=== PATIENT | male | born 1955 | race Caucasian/White ===

== ENCOUNTER → 2020-08-18 13:09 | Outpatient (BNVA) | payer OTHER, SELFPAY | PROVIDERS: PCP Internal Medicine; Visit Provider Urology ==

== ENCOUNTER → 2021-10-06 11:19 | Outpatient (BNVA) | payer OTHER, SELFPAY | PROVIDERS: PCP Internal Medicine; Visit Provider Urology | DX: N40.1 Benign prostatic hyperplasia with lower urinary tract symptoms (principal); R35.1 Nocturia | CPT/HCPCS: 51798 ==

== ENCOUNTER → 2022-04-15 10:23 | Outpatient (BNVA) | payer OTHER, SELFPAY | PROVIDERS: PCP Internal Medicine; Visit Provider Urology | DX: N40.1 Benign prostatic hyperplasia with lower urinary tract symptoms (principal); R35.1 Nocturia | CPT/HCPCS: 51798 ==

== ENCOUNTER 2023-04-19 13:11 | Outpatient (AMB) | payer OTHER, SELFPAY ==
--- NOTE | 2023-04-19 13:13 | A.OFFVIS_ITS ---
Intake Intake Visit Reasons: 1Y PSA(set) Intake Note: Patient is present for PVR/PSA Urology Med: Tamsulosin Antibiotic Allergy: None Blood Thinner: Eliquis [facility] PVR: 0ml Allergies No Known Allergies Allergy (Verified 04/19/23 13:14) Medication List - Last Reconciled 04/19/23 by Ubaldo Bay MD apixaban (Eliquis) 5 mg PO BID diltiazem HCl 120 mg PO DAILY flecainide 50 mg PO BID flu vac [id number] 36mos up(PF) mL IM tamsulosin 0.4 mg PO DAILY tamsulosin 0.4 mg PO BEDTIME 90 days HPI HPI Comments History of Present Illness Details Woodrow CASTANON is a very pleasant male. They are a patient of Dr. Manning. He seen for the following urologic conditions - lower urinary tract symptoms PSA stabilized in dropped from 3.2-2.7 Six month follow-up repeat Effective urination on tamsulosin ADA 2+ Works in [employer] for [employer] Brother history of prostate cancer aged 67 Lower Urinary Tract Symptoms: Discussed current urinary parameters Minimal nocturia Effective emptying Effective stream Is happy staying on the tamsulosin 0.4 mg with fluid restriction Can review in 12 months Current visit is for further evaluation of, lower urinary tract symptoms, predominate obstructive symptoms. Current treatment includes alpha rusty with fluid limiting Prostate Symptom Score 6/19 , Moderate (9-19), Bother 3. Symptoms include 6/ , urgency, frequency, and are progressing. PSA 01/16 2.6, 08/20 2.5, 09/21 3.4, 03/21 3.2, 03/22 2.7 Prostate volume 30-50gm Cystoscopy - no prominent medium lobe Testing at next visit will include bladder scan [facility] Medical History History of atrial fibrillation Benign prostatic hyperplasia with lower urinary tract symptoms Nocturia Weak urinary stream Overactive bladder Dysuria Surgical History History of surgery Review of Systems Const Denies chills and Denies fever(s) Card Reports no additional complaints and Denies syncope Resp Denies cough GI Denies abdominal pain and Denies heartburn Reports as per HPI and Denies change in libido Neuro Denies syncope Psych Denies change in libido Endo Denies change in libido Physical Exam Const General: cooperative, healthy appearing, comfortable and no acute distress Orientation/consciousness: patient oriented x3 HEENT Face and sinus: Yes normal facial exam Mouth: moist mucous membranes Neck Neck: Yes normal visual inspection, Yes full ROM and Yes trachea midline Chest Chest palpation & inspection: normal inspection of the chest Resp Effort & Inspection: normal respiratory effort, able to speak in complete sentences and no respiratory distress GI Inspection: Yes normal to inspection Back/Spine/Pelvis Cervical Spine: normal cervical lordosis Thoracic/Lumbar Spine: thoracic and lumbar spine normal to inspection Skin General skin exam: no rashes or lesions noted Neuro General: patient oriented x3, gait normal, tone normal and moves all extremities Extrem General: Yes normal to inspection and Yes capillary refill normal Office Procedures Post Void Residual Post Residual Void Post Void Residual (PVR): 0 [id number]-[id number] Void Residual by ultrasound Results AMB Urinalysis, Automated UA Leukoctes 0 Jose/uL Last Edit by Prabha Bateman [facility] on 04/19/23 13:25 UA Nitrite Negative Last Edit by Prabha Bateman [facility] on 04/19/23 13:25 UA Urobilinogen 1 mg/dL Last Edit by Prabha Bateman [facility] on 04/19/23 13:25 UA Protein 15 mg/dL Last Edit by Prabha Bateman [facility] on 04/19/23 13:25 UA pH 5.5 Last Edit by Prabha Bateman [facility] on 04/19/23 13:25 UA Blood 0 Charles/uL Last Edit by Prabha Bateman [facility] on 04/19/23 13:25 UA Specific [place] 1.030 Last Edit by Prabha Bateman [facility] on 04/19/23 13: 25 UA Ketone Negative Last Edit by Prabha Bateman [facility] on 04/19/23 13:25 UA Bilirubin 0 mg/dL Last Edit by Prabha Bateman [facility] on 04/19/23 13:25 UA Glucose 0 mg/dL Last Edit by Prabha Bateman [facility] on 04/19/23 13:25 Results Reviewed Results Reviewed: Laboratory Last Values Urine pH (Auto) 5.5 04/19/23 13:15 Specific [place] (Auto) 1.030 04/19/23 13:15 Urine Protein (Auto) 15 mg/dL 04/19/23 13:15 Glucose (UA)(Auto) 0 mg/dL 04/19/23 13:15 Urine Ketones (Auto) Negative 04/19/23 13:15 Urine Blood (Auto) 0 Charles/uL 04/19/23 13:15 Urine Nitrite (Auto) Negative 04/19/23 13:15 Urine Bilirubin (Auto) 0 mg/dL 04/19/23 13:15 Urine Urobilinogen (Auto) 1 mg/dL 04/19/23 13:15 Leukocyte Esterase (Auto) 0 Jose/uL 04/19/23 13:15 Assessment & Plan Assessment & Plan (1) Elevated PSA: Code(s): R97.20 - Elevated prostate specific antigen [PSA] (2) Nocturia: Code(s): R35.1 - Nocturia (3) BPH (benign prostatic hyperplasia): Code(s): N40.0 - Benign prostatic hyperplasia without lower urinary tract symptoms Plan Six month follow-up Orders: Orders Prostate Specific Antigen 6 Months R97.20 - Elevated prostate specific antigen [PSA] AMB Urinalysis Automated Today Z13.9 - Encounter for screening, unspecified AMB Post Void Residual by ultrasound Today N40.0 - Benign prostatic hyperplasia without lower urinary tract symptoms Patient Instructions: Imaging studies, laboratory and physical exam results were discussed and reviewed in detail. No major barriers to patient understanding were identified. An opportunity to ask questions regarding the treatment plan was provided. All questions were answered. The patient expressed understanding and agreement with the above treatment plan. The patient is aware they should contact our office by phone for worsening of their current condition or the appearance of new urologic symptoms. Compliance is encouraged with any medications and followup testing that is ordered. It is a privilege to participate in the urologic care of your patient. If you have any questions or concerns regarding treatment for the above conditions, or other urologic issues, please do not hesitate to contact me. The office telephone contact is [phone]. This note is constructed using voice recognition software. While every effort has been made to ensure accuracy traffic lieutenant errors may have been included. Yours sincerely, Dr Ubaldo Bay MD, [facility] - Urology Providers of Expert, Compassionate Care for the Genitourinary System Coding Level of Care Code Est Pt Level 3 (23979) Diagnoses Elevated PSA R97.20 Nocturia R35.1 BPH (benign prostatic hyperplasia) N40.0 CPT Codes Post Residual Void - PVR CPT Code: 12548-[id number] Void Residual by ultrasound ([id number])
== END 2023-04-19 13:46 | disposition home or self-care (01) ==
PROVIDERS: PCP Internal Medicine; Visit Provider Urology
DX: R97.20 Elevated prostate specific antigen [PSA] (principal); R35.1 Nocturia; N40.0 Benign prostatic hyperplasia without lower urinary tract symptoms; Z13.9 Encounter for screening, unspecified
CPT/HCPCS: 99213

== ENCOUNTER → 2023-04-19 13:11 | Outpatient (BNVA) | payer OTHER, SELFPAY | PROVIDERS: Visit Provider Urology | DX: R97.20 Elevated prostate specific antigen [PSA] (principal); N40.1 Benign prostatic hyperplasia with lower urinary tract symptoms; R35.1 Nocturia | CPT/HCPCS: 51798; 81003 ==

== ENCOUNTER 2023-10-12 07:54 | Outpatient (REF) | payer MEDICARE, OTHER, SELFPAY ==
[2023-10-12 09:37] LABS: Prostate Specific Antigen 2.58 ng/mL (<0.05-4.0)
== END 2023-10-12 07:55 | disposition home or self-care (01) ==
LOC: HO.LAB 07:54
PROVIDERS: Visit Provider Urology
DX: R97.20 Elevated prostate specific antigen [PSA] (principal); Z12.5 Encounter for screening for malignant neoplasm of prostate
CPT/HCPCS: 36415; 84153

== ENCOUNTER 2023-10-19 08:03 | Outpatient (AMB) | payer MEDICARE, OTHER, SELFPAY ==
--- NOTE | 2023-10-19 08:03 | A.OFFVIS_ITS ---
Intake Intake Visit Reasons: 6M PSA(set)Confirmed Intake Note: Patient presents today for a telehealth follow-up on PSA Meds- Tamsulosin Allergies to Antibiotic- No Known Allergies Blood Thinner- Eliquis Poker Supervisor Required: No Allergies No Known Allergies Allergy (Verified 10/19/23 08:05) Medication List - Last Reconciled 10/19/23 by Ubaldo Bay MD apixaban (Eliquis) 5 mg PO BID diltiazem HCl 120 mg PO DAILY flecainide 50 mg PO BID flu vac [id number] 36mos up(PF) mL IM tamsulosin 0.4 mg PO BEDTIME 90 days HPI HPI Comments History of Present Illness Details Woodrow CASTANON is a very pleasant male. They are a patient of Dr. Manning. He seen for the following urologic conditions - lower urinary tract symptoms Telemedicine Evaluation 15 min Consultation [employer] [facility] [employer] attempted PSA stabilized in dropped from 3.2 - 2.7 - 2.6 Six month follow-up repeat Waking up 2-3 times at night Will trial doubling up on tamsulosin and call if successful ADA 2+ Works in [employer] Brother history of prostate cancer aged 67 Lower Urinary Tract Symptoms: Discussed current urinary parameters Minimal nocturia Effective emptying Effective stream Is happy staying on the tamsulosin 0.4 mg with fluid restriction Can review in 6 months Current visit is for further evaluation of, lower urinary tract symptoms, predominate obstructive symptoms. Current treatment includes alpha rusty with fluid limiting Prostate Symptom Score 01/16 , Moderate (9-19), Bother 3. Symptoms include 01/16 , urgency, frequency, and are progressing. PSA 01/16 2.6, 08/20 2.5, 09/21 3.4, 03/21 3.2, 03/22 2.7 Prostate volume 30-50gm Cystoscopy - no prominent medium lobe Testing at next visit will include bladder scan [facility] Medical History History of atrial fibrillation Benign prostatic hyperplasia with lower urinary tract symptoms Nocturia Weak urinary stream Overactive bladder Dysuria Surgical History History of surgery Assessment & Plan Assessment & Plan (1) BPH (benign prostatic hyperplasia): Code(s): N40.0 - Benign prostatic hyperplasia without lower urinary tract symptoms (2) Elevated PSA: Code(s): R97.20 - Elevated prostate specific antigen [PSA] Plan Six-month follow-up PSA Orders: Orders Prostate Specific Antigen 6 Months R97.20 - Elevated prostate specific antigen [PSA] Medications: Refilled tamsulosin 0.4 mg PO BEDTIME 90 days 90 caps 3RF R97.20 - Elevated prostate specific antigen [PSA] Patient Instructions: Imaging studies, laboratory and physical exam results were discussed and rev iewed in detail. No major barriers to patient understanding were identified. An opportunity to ask questions regarding the treatment plan was provided. All questions were answered. The patient expressed understanding and agreement with the above treatment plan. The patient is aware they should contact our office by phone for worsening of their current condition or the appearance of new urologic symptoms. Compliance is encouraged with any medications and followup testing that is ordered. It is a privilege to participate in the urologic care of your patient. If you have any questions or concerns regarding treatment for the above conditions, or other urologic issues, please do not hesitate to contact me. The office telephone contact is [phone]. This note is constructed using voice recognition software. While every effort has been made to ensure accuracy filler sifter helper errors may have been included. Yours sincerely, Dr Ubaldo Bay MD, [facility] - Urology Providers of Expert, Compassionate Care for the Genitourinary System Telehealth Telehealth Location of provider rendering services: practice address Location of patient: address on file Patient Identification confirmed using: Name, : Yes Telehealth method: video Patient verbally consented to treatment: Yes Patient verbally consented to billing insurance company: Yes Patient informed of any privacy concerns related to visit: Yes Coding Level of Care Code Tele Est Pt Level 4 (45980) Diagnoses BPH (benign prostatic hyperplasia) N40.0 Elevated PSA R97.20
== END 2023-10-19 09:24 | disposition home or self-care (01) ==
LOC: HO.HUSH 08:03
PROVIDERS: PCP Internal Medicine; Visit Provider Urology
DX: N40.0 Benign prostatic hyperplasia without lower urinary tract symptoms (principal); R97.20 Elevated prostate specific antigen [PSA]; R35.1 Nocturia
CPT/HCPCS: 99214

== ENCOUNTER → 2023-10-19 08:03 | Outpatient (BNVA) | payer MEDICARE, OTHER, SELFPAY | PROVIDERS: PCP Internal Medicine; Visit Provider Urology ==

== ENCOUNTER 2024-04-16 08:54 | Outpatient (REF) | payer MEDICARE, OTHER, SELFPAY ==
[2024-04-16 09:09] LABS: MANUAL DIFF FLAG NO
[2024-04-16 09:51] LABS: Basophils Absolute Auto 0.1 X10*3/uL (0.0-0.2); Basophils Percent Auto 1.1 % (0-2); Eosinophils Absolute Auto 0.1 X10*3/uL (0.0-0.4); Eosinophils Percent Auto 1.7 % (0-4); Hematocrit 42.1 % (42.0-52.0); Hemoglobin 14.8 g/dl (14.0-18.0); Imm Gran Abs Auto 0.01 X10*3/uL (0.00-0.03); Imm Gran Pct Auto 0.2 % (0.0-0.4); Lymphocytes Absolute Auto 1.7 X10*3/uL (1.2-4.9); Lymphocytes Percent Auto 36.5 % (20-40); Mean Corpuscular HGB Conc 35.2 g/dl (31.0-36.0); Mean Corpuscular Volume 88.3 fL (80.0-98.0); Mean Platelet Volume 11.3 fL (9.4-12.4); Monocytes Absolute Auto 0.4 X10*3/uL (0.1-1.2); Monocytes Percent Auto 9.3 % (2-11); Neutrophils Absolute Auto 2.4 x10*3/uL (2.0-8.3); Neutrophils Percent Auto 51.2 % (45-73); Platelet Count 212 X10*3/uL (160-400); Red Blood Count 4.77 X10*6/uL (4.60-5.80); White Blood Count 4.6 X10*3/uL (4.8-10.8)
[2024-04-16 10:28] LABS: Anion Gap 10 (12-20); Blood Urea Nitrogen 12 mg/dL (9-16); Calcium 9.4 mg/dL (8.4-10.2); Carbon Dioxide 29 mmol/L (22-29); Chloride 107 mmol/L (96-108); Estimated Glomerular Filt Rate > 60; Glucose Random 88 mg/dL (60-115); Potassium 4.1 mmol/L (3.3-5.1); Sodium 142 mmol/L (135-145)
[2024-04-16 10:47] LABS: Prostate Specific Antigen 3.17 ng/mL (<0.05-4.0)
== END 2024-04-16 08:55 | disposition home or self-care (01) ==
LOC: HO.LAB 08:54
PROVIDERS: Absent Provider Physician Assistant; PCP Internal Medicine; Visit Provider Urology
DX: R97.20 Elevated prostate specific antigen [PSA] (principal); R00.2 Palpitations; I48.3 Typical atrial flutter; I48.0 Paroxysmal atrial fibrillation; R06.02 Shortness of breath; R53.83 Other fatigue; Z12.5 Encounter for screening for malignant neoplasm of prostate
CPT/HCPCS: 36415; 80048; 84153; 85025

== ENCOUNTER 2024-04-23 10:26 | Outpatient (AMB) | payer MEDICARE, OTHER, SELFPAY ==
--- NOTE | 2024-04-23 10:42 | A.OFFVIS_ITS ---
Intake Visit Reasons: 6M Follow Up-PSA(set) Intake Note: Patient presents today for 6m follow-up/ PSA Meds- Tamsulosin Allergies to Antibiotic- No Known Allergies Blood Thinner- Eliquis Driver'S License Reviewing Officer Required: No Allergies No Known Allergies Allergy (Verified 04/23/24 10:43) Medication List - Last Reconciled 04/23/24 by Ubaldo Bay MD apixaban (Eliquis) 5 mg PO BID diltiazem HCl CD 120 mg PO DAILY flecainide 50 mg PO BID flu vac [id number] 36mos up(PF) mL IM tadalafil 2.5 mg PO DAILY 90 days tamsulosin 0.8 mg (2 x 0.4 mg) PO BEDTIME 90 days HPI Comments Details: Woodrow CASTANON is a very pleasant male. They are a patient of Dr. Manning. 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 Current treatment includes alpha rusty with fluid limiting Prostate Symptom Score 01/16 , Moderate (9-19), Bother 3. Symptoms include 01/16 , urgency, frequency, and are progressing. PSA 01/16 2.6, 08/20 2.5, 09/21 3.4, 03/21 3.2, 03/22 2.7, 04/23 3.2 Prostate volume 30-50gm Cystoscopy - no prominent medium lobe Testing at next visit will include bladder scan PFSH Medical History History of atrial fibrillation Benign prostatic hyperplasia with lower urinary tract symptoms Nocturia Weak urinary stream Overactive bladder Dysuria Surgical History History of surgery Review of Systems Const Denies chills and Denies fever(s) Card Reports no additional complaints and Denies syncope Resp Denies cough GI Denies abdominal pain and Denies heartburn Reports as per HPI and Denies change in libido Neuro Denies syncope Psych Denies change in libido Endo Denies change in libido Physical Exam Const General: cooperative, healthy appearing, comfortable and no acute distress Orientation/consciousness: patient oriented x3 HEENT Face and sinus: Yes normal facial exam Mouth: moist mucous membranes Neck Neck: Yes normal visual inspection, Yes full ROM and Yes trachea midline Chest Chest palpation & inspection: normal inspection of the chest Resp Effort & Inspection: normal respiratory effort, able to speak in complete sentences and no respiratory distress GI Inspection: Yes normal to inspection Back/Spine/Pelvis Cervical Spine: normal cervical lordosis Thoracic/Lumbar Spine: thoracic and lumbar spine normal to inspection Skin General skin exam: no rashes or lesions noted Neuro General: patient oriented x3, gait normal, tone normal and moves all extremities Extrem General: Yes normal to inspection and Yes capillary refill normal Results AMB Urinalysis, Automated UA Leukoctes 0 Jose/uL Last Edit by JOHN Tillman on 04/23/24 10:56 UA Nitrite Negative Last Edit by JOHN Tillman on 04/23/24 10:56 UA Urobilinogen 0.2 mg/dL Last Edit by JOHN Tillman on 04/23/24 10:5 6 UA Protein 0 mg/dL Last Edit by JOHN Tillman on 04/23/24 10:56 UA pH 6.0 Last Edit by JOHN Tillman on 04/23/24 10:56 UA Blood 0 Charles/uL Last Edit by JOHN Tillman on 04/23/24 10:56 UA Specific [place] 1.030 Last Edit by JOHN Tillman on 04/23/24 10: 56 UA Ketone Negative Last Edit by JOHN Tillman on 04/23/24 10:56 UA Bilirubin 0 mg/dL Last Edit by JOHN Tillman on 04/23/24 10:56 UA Glucose 0 mg/dL Last Edit by JOHN Tillman on 04/23/24 10:56 Assessment & Plan Assessment & Plan (1) Bladder instability: Code(s): N32.89 - Other specified disorders of bladder Category: Medical (2) Nocturia: Code(s): R35.1 - Nocturia Category: Medical (3) BPH (benign prostatic hyperplasia): Code(s): N40.0 - Benign prostatic hyperplasia without lower urinary tract symptoms Category: Medical Plan Trial tadalafil Orders: Orders AMB Urinalysis Automated Today Z13.9 - Encounter for screening, unspecified Medications: New tadalafil 2.5 mg PO DAILY 90 days 90 tabs 0RF bladder instability N32.89 - Other specified disorders of bladder Patient Instructions: Imaging studies, laboratory and physical exam results were discussed and reviewed in detail. No major barriers to patient understanding were identified. An opportunity to ask questions regarding the treatment plan was provided. All questions were answered. The patient expressed understanding and agreement with the above treatment plan. The patient is aware they should contact our office by phone for worsening of their current condition or the appearance of new urologic symptoms. Compliance is encouraged with any medications and followup testing that is ordered. It is a privilege to participate in the urologic care of your patient. If you have any questions or concerns regarding treatment for the above conditions, or other urologic issues, please do not hesitate to contact me. The office telephone contact is [phone]. This note is constructed using voice recognition software. While every effort has been made to ensure accuracy blender helper errors may have been included. Yours sincerely, Dr Ubaldo Bay MD, [facility] - Urology Providers of Expert, Compassionate Care for the Genitourinary System Coding Level of Care Code Est Pt Level 4 (55841) Diagnoses Bladder instability N32.89 Nocturia R35.1 BPH (benign prostatic hyperplasia) N40.0
== END 2024-04-23 11:21 | disposition home or self-care (01) ==
PROVIDERS: PCP Internal Medicine; Visit Provider Urology
DX: N32.89 Other specified disorders of bladder (principal); R35.1 Nocturia; N40.0 Benign prostatic hyperplasia without lower urinary tract symptoms; Z13.9 Encounter for screening, unspecified
CPT/HCPCS: 99214

== ENCOUNTER → 2024-04-23 10:26 | Outpatient (BNVA) | payer MEDICARE, OTHER, SELFPAY | PROVIDERS: PCP Internal Medicine; Visit Provider Urology | DX: N40.0 Benign prostatic hyperplasia without lower urinary tract symptoms (principal); N32.89 Other specified disorders of bladder; R35.1 Nocturia | CPT/HCPCS: 81003; 99212 ==

== ENCOUNTER 2024-07-19 11:07 | Outpatient (AMB) | payer MEDICARE, OTHER, SELFPAY ==
--- NOTE | 2024-07-19 11:08 | MHC.OFFVIS ---
Intake Visit Reasons: 3m follow up Intake Note: Patient is present for 3M F/U Urology Medication:TAMSULOSIN,TADALAFIL Antibiotic Allergy:NONE Blood Thinner:APIXABAN Rest Room Maid Required: No Allergies No Known Allergies Allergy (Verified 07/19/24 11:08) HPI Comments Details: Woodrow CASTANON is a very pleasant male. They are a patient of Dr. Mnaning. He seen for the following urologic conditions - lower urinary tract symptoms Telemedicine Evaluation 15 min Consultation [facility] Video Follow-up trial of daily tadalafil for urinary urge Has noted that he feels more rested at night Waking 2 times rather than 3 times Does feel more confidence in has erectile performance Would like to remain on medications PSA stabilized in dropped from 3.2 - 2.7 - 2.6 - 04/23 3.2 Was waking up to 3 times at night Retired from [employer] - 09/19/2023 Brother history of prostate cancer aged 67 Lower Urinary Tract Symptoms: Discussed current urinary parameters Minimal nocturia Effective emptying Effective stream Is happy staying on the tamsulosin 0.4 mg with fluid restriction Can review in 6 months Current visit is for further evaluation of, lower urinary tract symptoms, predominate obstructive symptoms. Current treatment includes alpha rusty with fluid limiting Prostate Symptom Score 6/ , Moderate (9-19), Bother 3. Symptoms include 01/16 , urgency, frequency, and are progressing. PSA 01/16 2.6, 08/20 2.5, 09/21 3.4, 03/21 3.2, 03/22 2.7, 04/23 3.2 Prostate volume 30-50gm Cystoscopy - no prominent medium lobe Testing at next visit will include bladder scan [facility] Medical History History of atrial fibrillation Benign prostatic hyperplasia with lower urinary tract symptoms Nocturia Weak urinary stream Overactive bladder Dysuria Surgical History History of surgery Review of Systems Const All systems reviewed & are unremarkable except as noted in HPI and below Reports no additional complaints Resp Reports no additional complaints GI Reports no additional complaints Reports as per HPI Musc Reports no additional complaints Physical Exam Telemedicine evaluation Appropriate responses Regular breathing rate and rhythm HEENT Head: Yes normal to inspection Ears: hearing grossly normal bilaterally Eyes General: appearance normal, both eyes and all related structures Neck Neck: Yes normal visual inspection Chest Chest palpation & inspection: normal inspection of the chest Resp Effort & Inspection: normal respiratory effort and able to speak in complete sentences Telehealth Telehealth Location of provider rendering services: practice address Location of patient: address on file Patient Identification confirmed using: Name, : Yes Telehealth method: voice only Patient verbally consented to treatment: Yes Patient verbally consented to billing insurance company: Yes Patient informed of any privacy concerns related to visit: Yes Assessment & Plan Assessment & Plan (1) Nocturia: Code(s): R35.1 - Nocturia Category: Medical (2) Bladder instability: Code(s): N32.89 - Other specified disorders of bladder Category: Medical Plan Six-month follow-up Medications: Refilled tadalafil 2.5 mg PO DAILY 90 days 90 tabs 1RF bladder instability N32.89 - Other specified disorders of bladder Patient Instructions: Imaging studies, laboratory and physical exam results were discussed and reviewed in detail. No major barriers to patient understanding were identified. An opportunity to ask questions regarding the treatment plan was provided. All questions were answered. The patient expressed understanding and agreement with the above treatment plan. The patient is aware they should contact our office by phone for worsening of their current condition or the appearance of new urologic symptoms. Compliance is encouraged with any medications and followup testing that is ordered. It is a privilege to participate in the urologic care of your patient. If you have any questions or concerns regarding treatment for the above conditions, or other urologic issues, please do not hesitate to contact me. The office telephone contact is [phone]. This note is constructed using voice recognition software. While every effort has been made to ensure accuracy community relations assistant errors may have been included. Yours sincerely, Dr Ubaldo Bay MD, [facility] - Urology Providers of Expert, Compassionate Care for the Genitourinary System Coding Level of Care Code Tele Est Pt Level 3 (80018) Diagnoses Nocturia R35.1 Bladder instability N32.89
== END 2024-07-19 11:44 | disposition home or self-care (01) ==
LOC: HO.HUSH 11:07
PROVIDERS: PCP Internal Medicine; Visit Provider Urology
DX: R35.1 Nocturia (principal); N32.89 Other specified disorders of bladder
CPT/HCPCS: 99442

== ENCOUNTER → 2024-07-19 11:07 | Outpatient (BNVA) | payer MEDICARE, OTHER, SELFPAY | PROVIDERS: PCP Internal Medicine; Visit Provider Urology ==

== ENCOUNTER 2025-05-13 13:57 | Outpatient (AMB) | payer MEDICARE, OTHER, SELFPAY ==
--- NOTE | 2025-05-13 14:12 | A.OFFVIS_ITS ---
Intake Visit Reasons: 6m/PVR Intake Note: Patient is present for 6M F/U Urology Medication:TAMSULOSIN,TADALAFIL Antibiotic Allergy:NONE Blood Thinner:APIXABAN PVR:60 mls Asphalt Smoother Required: No Accompanied by: Self / Same As Patient Allergies No Known Allergies Allergy (Verified 05/13/25 14:13) HPI Comments Details: Woodrow CASTANON is a very pleasant male. They are a patient of Dr. Manning. He seen for the following urologic conditions - lower urinary tract symptoms Ten month follow-up Daily tadalafil for urinary urge Helps with waking at night PSA stabilized - dropped from 3.2 - 2.7 - 2.6 - 04/23 3.2 Was waking up to 3 times at night Retired from [employer] - 09/19/2023 Brother history of prostate cancer aged 67 Lower Urinary Tract Symptoms: Discussed current urinary parameters Minimal nocturia Effective emptying Effective stream Is happy staying on the tamsulosin 0.4 mg with fluid restriction Can review in 6 months Current visit is for further evaluation of, lower urinary tract symptoms, predominate obstructive symptoms. Current treatment includes alpha rusty with fluid limiting Prostate Symptom Score / , Moderate (9-19), Bother 3. Symptoms include 01/16 , urgency, frequency, and are progressing. PSA 01/16 2.6, 08/20 2.5, 09/21 3.4, 03/21 3.2, 03/22 2.7, 04/23 3.2 Prostate volume 30-50gm Cystoscopy - no prominent medium lobe Testing at next visit will include bladder scan [facility] Medical History History of atrial fibrillation Benign prostatic hyperplasia with lower urinary tract symptoms Nocturia Weak urinary stream Overactive bladder Dysuria Surgical History History of surgery Review of Systems Const Denies chills and Denies fever(s) Card Reports no additional complaints and Denies syncope Resp Denies cough GI Denies abdominal pain and Denies heartburn Reports as per HPI and Denies change in libido Neuro Denies syncope Psych Denies change in libido Endo Denies change in libido Physical Exam Const General: cooperative, healthy appearing, comfortable and no acute distress Orientation/consciousness: patient oriented x3 HEENT Face and sinus: Yes normal facial exam Mouth: moist mucous membranes Neck Neck: Yes normal visual inspection, Yes full ROM and Yes trachea midline Chest Chest palpation & inspection: normal inspection of the chest Resp Effort & Inspection: normal respiratory effort, able to speak in complete sentences and no respiratory distress GI Inspection: Yes normal to inspection Back/Spine/Pelvis Cervical Spine: normal cervical lordosis Thoracic/Lumbar Spine: thoracic and lumbar spine normal to inspection Skin General skin exam: no rashes or lesions noted Neuro General: patient oriented x3, gait normal, tone normal and moves all extremities Extrem General: Yes normal to inspection and Yes capillary refill normal Office Procedures Post Void Residual Post Residual Void Post Void Residual (PVR): 60 [id number] Void Residual by ultrasound Results AMB Urinalysis, Automated UA Leukoctes 0 Jose/uL Last Edit by Emeli Peraza [facility] on 05/13/25 14:27 UA Nitrite Negative Last Edit by Emeli Peraza [facility] on 05/13/25 14:27 UA Urobilinogen 0.2 mg/dL Last Edit by Emeli Peraza [facility] on 05/13/25 14:27 UA Protein 0 mg/dL Last Edit by Emeli Peraza [facility] on 05/13/25 14:27 UA pH 6.5 Last Edit by Emeli Peraza [facility] on 05/13/25 14:27 UA Blood 0 Charles/uL Last Edit by Emeli Peraza [facility] on 05/13/25 14:27 UA Specific [place] 1.005 Last Edit by Emeli Peraza [facility] on 05/13/25 14:2 7 UA Ketone Negative Last Edit by Emeli Peraza [facility] on 05/13/25 14:27 UA Bilirubin 0 mg/dL Last Edit by Emeli Peraza [facility] on 05/13/25 14:27 UA Glucose 0 mg/dL Last Edit by Emeli Peraza [facility] on 05/13/25 14:27 Results Reviewed Results Reviewed: Laboratory Last Values Urine pH (Auto) 6.5 05/13/25 14:26 Specific [place] (Auto) 1.005 05/13/25 14:26 Urine Protein (Auto) 0 mg/dL 05/13/25 14:26 Glucose (UA)(Auto) 0 mg/dL 05/13/25 14:26 Urine Ketones (Auto) Negative 05/13/25 14:26 Urine Blood (Auto) 0 Charles/uL 05/13/25 14:26 Urine Nitrite (Auto) Negative 05/13/25 14:26 Urine Bilirubin (Auto) 0 mg/dL 05/13/25 14:26 Urine Urobilinogen (Auto) 0.2 mg/dL 05/13/25 14:26 Leukocyte Esterase (Auto) 0 Jose/uL 05/13/25 14:26 Assessment & Plan Assessment & Plan (1) Nocturia: Code(s): R35.1 - Nocturia Category: Medical (2) BPH (benign prostatic hyperplasia): Code(s): N40.0 - Benign prostatic hyperplasia without lower urinary tract symptoms Category: Medical Plan Yearly follow-up Patient Instructions: This note is constructed using voice recognition software. While every effort has been made to ensure accuracy assistant in nursing errors may have been included. Imaging studies, laboratory and physical exam results were discussed and reviewed in detail. No major barriers to patient understanding were identified. An opportunity to ask questions regarding the treatment plan was provided. All questions were answered. The patient expressed understanding and agreement with the above treatment plan. The patient is aware they should contact our office by phone for worsening of their current condition or the appearance of new urologic symptoms. Compliance is encouraged with any medications and followup testing that is ordered. It is a privilege to participate in the urologic care of your patient. If you have any questions or concerns regarding treatment for the above conditions, or other urologic issues, please do not hesitate to contact me. The office telephone contact is [phone]. Sincerely, Dr Ubaldo Bay MD, [facility] - Urology Compassionate Specialist Care for the Genitourinary System Coding Level of Care Code Est Pt Level 3 (74188) Add On Problem Visit Only Diagnoses Nocturia R35.1 BPH (benign prostatic hyperplasia) N40.0 CPT Codes Post Residual Void - PVR CPT Code: 85215-[id number] Void Residual by ultrasound ([id number])
--- OUTSIDE RECORDS SUMMARY | 2025-05-13 16:56 | XMS_ITS | Clinical Summary ---
Author Organization [facility] Address [address] [place] [address] Care Team Providers Care Crown Attacher Name Role Phone Unavailable Primary Care Provider Unavailabl e Social History Tobacco Use Types Packs/Day Years Used Date Smoking Tobacco: Never Assessed Sex and Gender Information Value Date Recorded Sex Assigned at Not on file Legal Sex Male 1:10 PM EST Gender Identity Not on file Sexual Orientation Not on file Plan of Treatment Health Maintenance Due Date Last Done Comments Advance Care Planning 1955 Hepatitis C Virus Screening 1955 DTaP/Tdap/Td Vaccines (1 - Tdap) 1976 Colonoscopy 2002 Pneumococcal Vaccines 50+ (1 of 1 - PCV) 2007 Zoster (Shingles) Vaccine (1 of 2) 2007 Influenza Vaccine 02/28/2025 COVID-19 Vaccine (1 - 2023-2 5 season) 2025 RSV Vaccine 60 years and old er and Patients (1 - 1-dose 75+ series) 2032 Hepatitis B Vaccines Aged Out No long er eligible based on patient's age to complete [place] [id number] [facility]
--- OUTSIDE RECORDS SUMMARY | 2025-05-13 16:57 | XMS_ITS | Clinical Summary ---
Author Organization [facility] [address] [facility] Address [address] [place] [address] Phone Care Team Providers Care Mammalogy Teacher Name Role Phone Mario Manning MD Primary Care Provider [phone] Allergies No known active allergies Medications multivitamin (MULTIPLE VITAMINS ORAL) Multiple Vitamins-Mine rals (ZINC OR) Take 1 Tablet by mouth. Taking mon- fri Active cholecalciferol (VITAMIN D3) 1,250 mcg (50,000 unit) tablet Take 1 Tablet by mouth. Active ASCORBIC ACID, VITAMIN C, ORAL Take 500 mg by mouth 1 (one) time each day. Active tamsulosin (FLOMAX) 0.4 mg 24 hr capsule Take 0.4 mg by mouth daily. Take 30 mins after same meal every day. Active tadalafiL (CIALIS) 2.5 mg tablet Take 1 tablet (2.5 mg total) by mouth 1 (one) time each day. 07/19/2024 Active dabigatran etexilate (PRADAXA) 150 mg capsule TAKE 1 CAPSULE BY MOUTH TWICE A DAY 180 capsule 2 04/07/2025 Active Active Problems Problem Noted Date Diagnosed Date SOB (shortness of breath) 10/09/2023 PAC (premature atrial contraction) 06/06/2022 PAF (paroxysmal atrial fibri llation) (CMS/HCC V24, CMS/HCC V28) 06/06/2022 Assessment & Plan (10/01/2024 12:36 PM EST): Orders: ECG 12 lead Palpitations 06/06/2022 Typical atrial flutter (CMS/HCC V24, CMS/HCC V28 ) 06/06/2022 Encounters Date Type Department Care Team Description 02/24/[address] [facility] - [address] [place] [phone] Bell Olmstead MD 02/20/2025 8:00 AM EDT Ancillary Procedure [facility] - [address] [place] [phone] PAF (paroxysmal atrial fibrillation) (CMS/HCC V24, CMS/HCC V28) from Last 3 Months Surgical History Surgery Date Site/Laterality Comments CARDIAC ABLATION HERNIA REPAIR ABLATION DONE ON 12/12/2024 [place] [facility] [place] INDICATIONS:Atrial Fibrillation. Medical History Medical History Date Comments Atrial fibrillation (CMS/HCC V24, CMS/HCC V28) Social History Tobacco Use Types Packs/Day Years Used Date Smoking Tobacco: Never Passive Smoke Exposure: Never Smokeless Tobacco: Never Alcohol Use Standard Drinks/Week Comments Not Currently 0 (1 standard drink = 0.6 oz pur e alcohol) Interpersonal Safety Answer Date Record ed Physical Abuse Unrecognized value 08/30/2024 Verbal Abuse Unrecognized value 08/30/2024 Sex and Gender Information Value Date Recorded Sex Assigned at Male 08/29/2024 10:38 AM EST Legal Sex Male 4:34 PM EST Gender Identity Not on file Sexual Orientation Not on file Obstetrics History Last Filed Vital Signs Vital Sign Reading Time Taken Comments Blood Pressure 106/78 01/09/2025 9:49 AM EDT Pulse 62 10/01/2024 9:23 AM EST Temperature 36.3 C (97.3 F) 08/30/2024 7:59 AM EST Respiratory Rate 18 08/30/2024 8:19 AM EST Oxygen Saturation 96% 01/09/2025 9:49 AM EDT Inhaled Oxygen Concentration - - Weight 87.9 kg (193 lb 12.8 oz) 01/09/2025 9:49 AM EDT Height 177.8 cm (5' 10 ) 01/09/2025 9:49 AM EDT Body Mass Index 27.81 01/09/2025 9:49 AM EDT Plan of Treatment Upcoming Encounters Date Type Department Care Team (Late st Contact Info) Description 06/05/2025 1:40 PM EST Office Visit [facility] - [address] [place] [phone] Kenya Kuhn PA [address] [place] [address] Health Maintenance Due Date Last Done Comments DTaP,Tdap,and Td Vaccines (1 - Tdap) 1976 Pneumococcal Vaccine: 50+ Years (1 of 1 - PCV) 2007 Zoster Vaccines (2 of 2) 11/05/2018 09/10/2018 Hepatitis C Screening 07/09/2022 Medicare Annual Wellness Visit 07/09/2022 Social Influencers of Health Screening 07/09/2022 Depression Screening 07/31/2024 COVID-19 Vaccine ( season) 2025 12/13/2021, 06/21/2021, 10/22/2020, Additional history exists Influenza Vaccine (#1) 2025 , 06/05/2023, 06/07/2021, Additional history exists Falls Risk Assessment 08/30/2025 08/30/2024 Cholesterol Screening (Lipid Panel) 09/13/2027 09/13/2022 RSV Immunization Adult Patients (1 - 1-dose 75+ series) 2032 Colorectal Cancer Screening: Colonoscopy 08/30/2034 08/30/2024, 06/14/2018 HIB Vaccines Aged Out No longer eligi ble based on patient's age to complete this topic HPV Vaccines Aged Out No longer eligi ble based on patient's age to complete this topic Hepatitis A Vaccines Aged Out No long er eligible based on patient's age to complete this topic Hepatitis B Vaccines Aged Out No long er eligible based on patient's age to complete this topic IPV Vaccines Aged Out No longer eligi ble based on patient's age to complete this topic MMR Vaccines Aged Out No longer eligi ble based on patient's age to complete this topic Meningococcal ACWY Vaccine Aged Out N o longer eligible based on patient's age to complete this topic Meningococcal B Vaccine Aged Out No l onger eligible based on patient's age to complete this topic RSV Immunization Patients Under 20 months Aged Out No longer eligible based on patient's age to complete this topic Varicella Vaccines Aged Out No longer eligible based on patient's age to complete this topic Procedures Procedure Name Priority Date/Time Associated Diagnosis Comments CARDIAC INSURANCE LOSS ADJUSTER W/ CONNECTION (MCOT) Routine 02/21/2025 11:01 AM EDT PAF (paroxysmal atrial fibrillation) (CMS/HCC V24, CMS/HCC V28) COLONOSCOPY Routine 08/30/2024 7:58 AM EST Family history of colonic polyps LIPID PANEL Routine 09/13/2022 from Last 3 Months or Most Recently Relevant to Health Maintenance Results * CARDIAC INSURANCE LOSS ADJUSTER W/ CONNECTION (MCOT) (02/21/2025 11:01 AM EDT) Anatomical Region Laterality Modality Cardiac Diagnost ic Narrative 03/16/2025 10:03 PM EDT [facility] DI[facility]ST[facility]ING DEPARTMENT [address] [place] [address], [place] [address] TEL: FAX: TYPE OF TEST: 14 day ROCT monitor. DATES OF MONITORIN02/20/2025- 03/10/2025 REQUESTING PHYSICIAN: SEVERO Michel PRIMARY CARE PROVIDER: Mario Manning MD INDICATION: PAF (paroxysmal atrial fibrillation) FINDINGS 1. The predominant rhythm was Sinus. 2. The average heart rate was 62 bpm, minimum heart rate was 44 bpm, maximum heart rate was 112 bpm. 3. Total VE burden: 1.3% consisting of singles. 4. Total SVE burden: <0.1% consisting of singles, couplets, triplets and trigeminy patterns. Supraventricular runs were noted with the longest 9 seconds. 5. There were 1 patient triggered symptomatic events. CONCLUSION: Predominant normal sinus rhythm. Occasional premature ventricular contraction. Occasional premature atrial contraction. Episodes of atrial tachycardia. Longest episode is 21 beats. us [place] ELKINS [facility] C[facility]IAC [facility] PROCEDURES F inal Result * COLONOSCOPY Anesthesia - MAC; [facility] ENDOSCOPY (08/30/2024 7:58 AM EST) Anatomical Region Laterality Modality Endoscopy 08/30/2024 7:15 AM EST Impressions 08/30/2024 8:00 AM EST - Diverticulosis in the sigmoid colon. - The examination was otherwise normal on direct and retroflexion views. - No specimens collected. Recommendation: - Repeat colonoscopy in 7 years for screening purposes. Narrative 08/30/2024 8:00 AM EST [facility] GI Patient Name: Unique Fenton Procedure Date: 08/30/2024 7:15 AM Date of : 1955 Age: 69 Room: ROOM 16 Gender: Male Note Status: Finalized Attending MD: Eliazar Saunders MD, Procedure Date No Time: 08/30/2024 Procedure: Colonoscopy Indications: Colon cancer screening in patient at increased risk: Family history of 1st-degree relative with colon polyps before age 60 years Providers: Eliazar Saunders MD Referring MD: Eliazar Saunders MD Medicines: Propofol per Anesthesia Complications: No immediate complications. Estimated Blood Loss: Estimated blood loss: none. Procedure: After I obtained informed consent, the scope was passed under direct vision. Throughout the procedure, the patient's blood pressure, pulse, and oxygen saturations were monitored continuously.The Olympus Pediatric Colonoscope was introduced through the anus and advanced to the cecum, identified by appendiceal orifice and ileocecal valve. The colonoscopy was performed without difficulty. The patient tolerated the procedure well. The quality of the bowel preparation was good. Findings: The perianal and digital rectal examinations were normal. Multiple diverticula were found in the sigmoid colon. The exam was otherwise without abnormality on direct and retroflexion views. Procedure Code(s): --- Professional --- G0105, Colorectal cancer screening; colonoscopy on individual at high risk Diagnosis Code(s): --- Professional --- Z83.71, Family history of colonic polyps K57.30, Diverticulosis of large intestine without perforation or abscess without bleeding CPT copyright 2020 [employer]. All rights reserved. The codes documented in this report are preliminary and upon landscape laborer review may be revised to meet current compliance requirements. Eliazar Saunders MD 08/30/2024 7:59:51 AM This report has been signed electronically.Eliazar Saunders MD Number of Addenda: 0 Note Initiated On: 08/30/2024 7:15 AM Scope In: Scope Out: Endoscopy Department at [facility] - [address] [place] [id number] Procedure Note Eliazar Saunders MD - 08/30/2024 [facility] GI Patient Name: Unique Fenton Procedure Date: 08/30/2024 7:15 AM Date of : 1955 Age: 69 Room: ROOM 16 Gender: Male Note Status: Finalized Attending MD: Eliazar Saunders MD, Procedure Date No Time: 08/30/2024 Procedure: Colonoscopy Indications: [facility] Family history of 1st-degree relative with colon polyps before age 60 years Providers: Eliazar Saunders MD Referring MD: Eliazar Saunders MD Medicines: Propofol per Anesthesia Complications: No immediate complications. Estimated Blood Loss: Estimated blood loss: none. Procedure: After I obtained informed consent, the scope was passed under direct vision. Throughout theprocedure, the patient's blood pressure, pulse, and oxygen saturations were monitored continuously.The Olympus Pediatric Colonoscope was introduced through theanus and advanced to the cecum, identified byappendiceal orifice and ileocecal valve. The colonoscopy was performed without difficulty. The patient tolerated the procedure well. The quality of the bowel preparation was good. Findings: The perianal and digital rectal examinations were normal. Multiple diverticula were found in the sigmoidcolon. The exam was otherwise without abnormality ondirect and retroflexion views. Procedure Code(s): --- Professional --- G0105, Colorectal cancer screening; colonoscopy on individual at high risk Diagnosis Code(s): --- Professional --- Z83.71, Family history of colonic polyps K57.30, Diverticulosis of large intestine without perforation or abscess without bleeding CPT copyright 2020 [employer]. All rights reserved. The codes documented in this report are preliminary and upon landscape laborer reviewmay be revised to meet current compliance requirements. Eliazar Saunders MD 08/30/2024 7:59:51 AM This report has been signed electronically.Eliazar Saunders MD Number of Addenda: 0 Note Initiated On: 08/30/2024 7:15 AM Scope In: Scope Out: Endoscopy Department at [facility] - [address] [place] [id number] IMPRESSION: - Diverticulosis in the sigmoid colon. - The examination was otherwise normal on directand retroflexion views. - No specimens collected. Recommendation: - Repeat colonoscopy in 7 years for screeningpurposes. 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 Health Care Decision (hx) 08/30/2016 AD CARLSON DIRECTIVE Health Care Decision (hx) 08/30/2016 AD CARLSON DIRECTIVE Health Care Decision (hx) 08/30/2016 AD CARLSON DIRECTIVE Health Care Decision (hx) 08/30/2016 AD CARLSON DIRECTIVE Health Care Decision (hx) 08/30/2016 AD CARLSON DIRECTIVE Health Care Decision (hx) 08/30/2016 AD CARLSON DIRECTIVE Health Care Decision (hx) 08/30/2016 AD CARLSON DIRECTIVE Health Care Decision (hx) 08/30/2016 AD CARLSON DIRECTIVE Health Care Decision (hx) 08/30/2016 AD CARLSON DIRECTIVE Health Care Decision (hx) 08/30/2016 AD CARLSON DIRECTIVE Health Care Decision (hx) 08/30/2016 AD CARLSON DIRECTIVE Health Care Decision (hx) 08/30/2016 AD CARLSON DIRECTIVE Care Teams Mammalogy Teacher Relationship Specialty Start Date End Date Mario Manning MD [address] [place] [address] PCP - General Internal Medicine 07/18/24
--- OUTSIDE RECORDS SUMMARY | 2025-05-13 16:57 | XMS_ITS | Encounter Summary ---
Author Organization [facility] Address [address] [place] [id number] Care Team Providers Care Laborer Hoisting Name Role Phone Unavailable Primary Care Provider Unavailabl e Encounter Details Date Type Department Care Team (Latest Contact Info) Description 07/05/2020 Lab Requisition [facility] [address] [place] [address] [address] [place] [address] Asad Rhodes PA-C [address] [place], [place] [id number] Encounter for laboratory testing for COVID-19 virus Social History Tobacco Use Types Packs/Day Years Used Date Smoking Tobacco: Never Assessed Sex and Gender Information Value Date Recorded Sex Assigned at Not on file Legal Sex Male 1:10 PM EST Gender Identity Not on file Sexual Orientation Not on file documented as of this encounter Plan of Treatment Not on file documented as of this encounter Procedures Procedure Name Priority Date/Time Associated Diagnosis Comments (REPORT) SARS COV-2 RNA (COVID-19), QUAL Routine 07/05/2020 1:13 PM EST Encounter for laboratory testing for COVID-19 virus [ICD-10-CM] documented in this encounter Results * SARS CoV-2 RNA (COVID-19), Qual (07/05/2020 1:13 PM EST) Pathologist [facility] SARS CoV 2 RNA, Qual NOT DETECTED NOT DETECTED 07/08/2020 10:00 PM EST [facility] Comment: A Not Detected (negative) test result for this test means that SARS- CoV-2 RNA was not present in the specimen above the limit of detection. A negative result does not rule out the possibility of COVID-19 and should not be used as the sole basis for treatment or patient management decisions. If COVID-19 is still suspected, based on exposure history together with other clinical findings, re-testing should be considered in consultation with public health authorities. Laboratory test results should always be considered in the context of clinical observations and epidemiological data in making a final diagnosis and patient management decisions. Please review the Fact Sheets and FDA authorized labeling available for health care providers and patients using the following websites: https://www.[employer].[facility]/home/Covid-19/HCP/NAAT/fact-sheet2 https://www.[employer].[facility]/home/Covid-19/Patients/NAAT/ fact-sheet2 This test has been authorized by the FDA under an Emergency Use Authorization (EUA) for use by authorized laboratories. Due to the current public health emergency, [facility] is receiving a high volume of samples from a wide variety of swabs and media for COVID-19 testing. In order to serve patients during this public health crisis, samples from appropriate clinical sources are being tested. Negative test results derived from specimens received in non-commercially manufactured viral collection and transport media, or in media and sample collection kits not yet authorized by FDA for COVID-19 testing should be cautiously evaluated and the patient potentially subjected to extra precautions such as additional clinical monitoring, including collection of an additional specimen. Methodology: Nucleic Acid Amplification Test (NAAT) includes RT-PCR or TMA Additional information about COVID-19 can be found at the [facility] website: www.Intern.[facility]/Covid19. Microbiology Nasopharyngeal swab / Unknown 07/05/2020 1:13 PM EST 07/05/2020 1:13 PM EST Narrative [facility] - 07/08/2020 10:00 PM EST Performing Organization Information: Site ID: [place] Name: [employer] [facility] Address: [address] [id number] Director: DAISY LOVE DO,MPH [facility] License number [id number] Asad Rhodes PA-C BODY FLUIDS AND STOOLS OR DERABLES Final Result [facility] documented in this encounter Visit Diagnoses Diagnosis Encounter for laboratory testing for COVID-19 virus documented in this encounter
== END 2025-05-13 14:49 | disposition home or self-care (01) ==
LOC: HO.HUSH 13:58
PROVIDERS: PCP Internal Medicine; Visit Provider Urology
DX: R35.1 Nocturia (principal); N40.0 Benign prostatic hyperplasia without lower urinary tract symptoms
CPT/HCPCS: 99213; G2211

== ENCOUNTER → 2025-05-13 13:57 | Outpatient (BNVA) | payer MEDICARE, OTHER, SELFPAY | PROVIDERS: PCP Internal Medicine; Visit Provider Urology | DX: N40.1 Benign prostatic hyperplasia with lower urinary tract symptoms (principal); R35.1 Nocturia; Z80.42 Family history of malignant neoplasm of prostate; Z79.899 Other long term (current) drug therapy; Z09 Encounter for follow-up examination after completed treatment for conditions other than malignant neoplasm | CPT/HCPCS: 51798; 81003; 99212 ==